=== PATIENT | male | born 1985 | race Caucasian/White ===

== ENCOUNTER 2019-08-29 12:04 | Outpatient (REF) | payer BC, SELFPAY ==
[2019-09-02 11:00] LABS: Calculated LDL 138 mg/dL; Cholesterol 232 mg/dL (<200); HDL Cholesterol 57 mg/dL (40-60); Triglyceride 189 mg/dL (<150)
[2019-09-04 10:51] LABS: BUN 12 mg/dL (10-26); CO2 Total 27 mEq/L (22-32); Chloride 101 mEq/dL (96-110); Glucose 100 mg/dL (70-100); Potassium 4.2 mEq/L (3.5-5.0); Sodium 137 mEq/L (136-145)
[2019-09-04 10:52] LABS: ALT 43 U/L (<50); AST 34 U/L (15-46); Albumin 4.7 g/dL (3.4-4.9); Alkaline Phosphatase 72 U/L (38-126); Calcium 10.1 mg/dL (8.5-10.5); Total Protein 7.8 g/dL (6.3-8.2); eGFR 116 (>60)
== END 2019-08-29 12:24 ==
LOC: NCHCN 12:04
PROVIDERS: PCP Nurse Practitioner Family; Visit Provider Nurse Practitioner Family
DX: Z13.220 Encounter for screening for lipoid disorders (principal); Z51.81 Encounter for therapeutic drug level monitoring
CPT/HCPCS: 80053; 80061

== ENCOUNTER 2022-01-24 02:44 | Outpatient (CLI) | payer BC, SELFPAY ==
[2022-01-24 13:05] LABS: Calculated LDL 194 mg/dL (<100); Cholesterol 277 mg/dL (<200); HDL Cholesterol 56 mg/dL (40-60); Triglyceride 139 mg/dL (<150)
== END 2022-01-24 02:45 | disposition home or self-care (01) ==
LOC: LOS 02:44
PROVIDERS: PCP Nurse Practitioner Family; Visit Provider Nurse Practitioner Family
DX: Z13.220 Encounter for screening for lipoid disorders (principal)
CPT/HCPCS: 36415; 80061

== ENCOUNTER 2022-02-21 18:14 | Outpatient (REF) | payer BC, SELFPAY ==
[2022-02-23 11:41] LABS: COVID-19 RT-PCR UVMMC Result Positive (Negative)
== END 2022-02-21 18:15 | disposition home or self-care (01) ==
LOC: LBN 18:14
PROVIDERS: PCP Nurse Practitioner Family; Visit Provider Nurse Practitioner Family
DX: Z20.822 Contact with and (suspected) exposure to COVID-19 (principal); J02.9 Acute pharyngitis, unspecified
CPT/HCPCS: U0003

== ENCOUNTER 2022-04-24 14:45 | Emergency (ER) | payer OTHER, SELFPAY ==
[2022-04-24 14:52] VITALS: BP 145/81; PULSE 84; RESP 16; TEMP 37.2; O2SAT 99
--- NOTE | 2022-04-24 15:15 | DI.CT_ITS ---
Exam(s) CT ABDOMEN PELVIS WO EXAM: CT ABDOMEN PELVIS WO CLINICAL HISTORY: left lower abdomen pain. TECHNIQUE: Imaging Protocol: Axial computed tomography images with coronal and sagittal reformatted images were created and reviewed. COMPARISON: No exams were available for comparison FINDINGS: ABDOMEN: Lung Bases: Normal where visualized. Liver: Normal density. No measurable mass. Gallbladder and biliary tract: No radiodense calculus or biliary ductal dilation. Pancreas: Normal density, no abnormal calcifications or inflammatory process. Spleen: Normal. Kidneys: Normal size, contour and axis.2 mm nonobstructing stone in the midpole of the right kidney. No masses seen. Adrenal glands: No mass is seen. Lymph nodes: Within normal limits. Abdominal Aorta: Abdominal portion non-dilated. Atherosclerosis. PELVIS: Bladder:Symmetric distention, no gross wall thickening. Bowel: There is bowel wall thickening seen in the proximal sigmoid colon with surrounding inflammatio n. There are few diverticula suggested in the region and this may represent acute diverticulitis. I nfectious or inflammatory colitis cannot be excluded. Appendix is unremarkable. There is no evidenc e of bowel obstruction. Peritoneal cavity: There is a trace amount of free fluid in the pelvis. No free air. Reproductive organs: Unremarkable as visualized. Bones: Within normal limits. Soft Tissues: Within normal limits. IMPRESSION: 1. There is bowel wall thickening seen in the proximal sigmoid colon with surrounding inflammation. There are few diverticula in the area suggesting acute diverticulitis. Infectious or inflammatory co litis should also be considered. There is no abscess or free air. 2. Results of this exam have been verbally communicated with provider. RADIATION DOSE DELIVERED: 648.2mGy.cm Total DLP DATA REPOSITORY: All CT scans at this facility are submitted to the National Radiology Data Registry (NRDR) Dose Index Registry (DIR) with the [employer] (A[employer]). RADIATION OPTIMIZATION: All CT scans at this facility use at least one of these dose optimization te chniques: automated exposure control; mA and/or kV adjustment per patient size (includes targeted exa ms where dose is matched to clinical indication); or iterative reconstruction.
--- NOTE | 2022-04-24 15:22 | W.ED.GENAD ---
Discharge Plan Disposition Patient Disposition: HOME Condition: Stable Discharge Details Clinical Impression: Diverticulitis Primary Care Provider: Jae Johnson ED Provider: Cortez Marcum Home Meds and New Rx's Prescriptions: New amoxicillin-pot clavulanate 875-125 mg tablet 1 tab PO BID Qty: 14 0RF Continued epinephrine [EpiPen 2-Patrick] 0.3 mg/0.3 mL auto-injector 0.3 mg IM ONCE Rx Instructions: as a single dose; may repeat once Discharge Instructions Instructions: Diverticulitis (ED) Additional Instructions: you can take ibuprofen and tylenol as needed for pain, follow dosing instructions on packaging if your symptoms don't improve in a week follow up with your primary care provider if you feel more ill, have severe worsening pain or fevers return to the emergency department Medical Decision Making 36 yo male with no chronic medical problems comes in with cc of abdomen pain since yesterday late morning. Denies pain like this in the past and has had diarrhea. No fevers, chills, urinary symptoms, bloody stools, n/v. HE has not had prior surgeries and denies smoking or drug use and drinks socially. He localizes the pain to the llq and is tender in this area, no other tenderness elsewhere, no guarding or rebound. Denies testicle pain or swelling. Suspect diverticulitis given location of pain, will obtain cbc, cmp, lipase and ct abdomen pelvis to further evaluate labs show wbc of 15 and does have diverticulitis without perforation and abscess. He only has mild tenderness on deep palpation to llq on repeat exam and feels significant improvement with toradol. He is stable for d/c and return precautions given Differential Diagnosis Differential Diagnosis: diverticulitis, colitis Imaging Data Radiologic Study: Attestation: I personally reviewed and interpreted this imaging study as follows: Imaging: CT Scan Radiologist's impression: IMPRESSION: 1. There is bowel wall thickening seen in the proximal sigmoid colon with surrounding inflammation.? There are few diverticula in the area suggesting acute diverticulitis.? Infectious or inflammatory colitis should also be considered.? There is no abscess or free air. 2. Results of this exam have been verbally communicated with provider.? HPI General Mode of arrival: ambulatory. Date/Time Provider Initiated Documentation: 04/24/22 15:14. Limitations to Documentation: no limitations. Information obtained by: patient. History of Present Illness 36 year old M presents to the emergency department with the chief complaint of abdomen pain, described as moderate, with intensity rated at 6. Quality is described as sharp, Patient reports no radiation. Patient started experiencing this day(s) (1) and it has been constant. No relieving factors improve symptom(s), No exacerbating factors reported . Patient notes no other symptoms.; denies fever/chills, nausea/vomiting and shortness of breath. Patient did receive the following treatments prior to arrival, none Related Data Home Medications Medication Instructions Recorded Confirmed epinephrine 0.3 mg/0.3 mL 0.3 mg IM ONCE 01/14/22 04/24/22 injection, auto-injector (EpiPen 2-Patrick) amoxicillin 875 mg-potassium 1 tab PO BID #14 tabs 04/24/22 clavulanate 125 mg tablet Previous Rx's Medication Instructions Recorded amoxicillin 875 mg-potassium 1 tab PO BID #14 tabs 04/24/22 clavulanate 125 mg tablet Allergies Allergy/AdvReac Type Severity Reaction Status Date / Time venom-honey bee Allergy Severe Anaphylaxsi Unverified 04/24/22 16:00 [bee venom (honey bee)] s venom-wasp [wasp venom] Allergy Severe Anaphylaxsi Unverified 04/24/22 16:00 s General Stated Complaint: Abd Prob RANDY: 3 Review of Systems All systems reviewed & are unremarkable except as noted in HPI and below Constitutional Constitutional: Denies chills, Denies fever(s) and Denies weakness Cardiovascular Cardiovascular: Denies chest pain and Denies dyspnea Respiratory Respiratory: Denies cough and Denies dyspnea Gastrointestinal Gastrointestinal: Denies nausea and Denies vomiting Genitourinary Genitourinary: Denies dysuria Neurologic Neurologic: Denies weakness [facility] All Active Problems (Updated 04/24/22 @ 16:51 by Cortez Marcum MD) Diverticulitis (Chronic) Anxiety (Chronic) Surgical History H/O vasectomy Family History Mother Alopecia Father Alcohol use disorder Brother Sleep apnea Son No problems noted. Son No problems noted. Maternal Grandmother , 77 No problems noted. Maternal Grandfather , 73 Alcohol use disorder Diabetes Hyperlipidemia Paternal Grandfather , 81 No problems noted. Paternal Grandmother , 84 No problems noted. Social History Smoking/Tobacco Use Status: Never Second Hand Exposure: Yes Smoking risk assessment performed?: Yes Alcohol Intake: current Alcohol Intake frequency: a few times a week Alcohol type: beer Drug use: Occasionally Substance use type: does not use Caregiver/Support person: No Household members: spouse and children Housing: house Communication Needs: None Do you need help understanding health information?: Rarely Pets and animals: Yes Pets and animals: dog(s) Sexually active: Yes Do you think of yourself as: straight/heterosexual Current gender identity: male What is your relationship status?: How often do you talk on the phone with friends or family?: three or more times per week How often do you get together with friends or relatives?: twice per week Do you belong to any clubs or organized social groups?: yes Panel score (0-1 are the most socially isolated patients): 3 What type of physical activity do you participate in: other Details: Golf Duration: > 90 minutes/day Frequency: 1-2 times per week Rowena/Adventist: No preference Special rowena needs: No Seatbelt use: always Helmet use: Yes Helmet use: sometimes Drive intox or ride w/intox vibratory pile driver: No Exam Const General: no acute distress Orientation: alert HENMT Head: normal to inspection Ears: external ears normal General nose exam: external nose normal Mouth: moist mucous membranes Eyes General: appearance normal, both eyes and all related structures Neck Neck: normal visual inspection Resp Effort & Inspection: normal respiratory effort and able to speak in complete sentences Cardio Rate: regular rate GI Palpation: soft and tender Skin General skin exam: no rashes or lesions noted Neuro General: patient alert and patient oriented x3 Extrem General: normal to inspection Psych Mental Status: mental status grossly normal Course Vital Signs Vital signs: Vital Signs Temperature 37.2 C 04/24/22 14:52 Pulse 84 04/24/22 14:52 Respiratory Rate 16 04/24/22 14:52 Blood Pressure 145/81 H 04/24/22 14:52 Pulse Oximetry 99 04/24/22 14:52 Temperature 37.2 C 04/24/22 14:52 Temperature Source Skin 04/24/22 14:52 Pulse 84 04/24/22 14:52 Respiratory Rate 16 04/24/22 14:52 Respiratory Effort 04/24/22 14:55 Blood Pressure 145/81 H 04/24/22 14:52 Blood Pressure Position Sitting 04/24/22 14:52 Pulse Oximetry 99 04/24/22 14:52 Oxygen Delivery Method Room Air 04/24/22 14:52 Oxygen Flow Rate 0 04/24/22 14:52 Pain Level 7 04/24/22 14:52 PAWSS Have you Been Recently Intoxicated or Drunk Within the Last 30 days?: No Have you Ever Experienced Previous Episodes of Alcohol Withdrawal?: No Have you ever Experienced Withdrawal Seizures?: No Have you ever Experienced Delirium Tremens(DT)s?: No Have you ever undergone Alcohol Rehabilitation Treatment (i.e, inpt ot outpatient treatment programs)?: No Have you ever Experienced Blackouts?: No Have you ever Combined Alcohol with other Downers within the last 90 days?: No Have you ever Combined Alcohol with any other Substance of Abuse during the last 90 days?: No Positive Blood Alcohol level on Presentation? [PCS.BAL]: No Evidence of Increased Autonomic Activity (i.e. HR>120, tremor, sweating, agitation, nausea)?: No Result: 0
[2022-04-24] MEDS: Normal Saline 1,000 ML 1000 ML IV (16:03)
[2022-04-24] MEDS: Ketorolac 15 MG/ML VIAL IVP (16:03)
[2022-04-24 16:06] VITALS: BP 113/66; PULSE 78; RESP 16; TEMP 36.8; O2SAT 98
[2022-04-24 16:36] LABS: Abs Immature Grans 0.06 10^3/uL (0.0-0.06); Absolute Eosinophil Count 0.05 10^3/uL (0.0-0.7); Absolute Lymphocyte Count 1.49 10^3/uL (1.2-3.4); Basophils % 0.3; Eosinophils % 0.3; HCT 44.8 % (40.0-50.0); HGB 15.2 g/dL (13.5-17.5); Immature Grans % 0.4; Lymphocytes % 9.4; MCH 30.4 pg (27.0-33.0); MCHC 33.9 % (32.0-36.0); MCV 90 fL (80-95); MPV 11.3 fL (8.0-11.0); Monocytes % 10.9; Neutrophils % 78.7; Platelet Count 243 10^3/uL (130-400); RDW 11.6 % (11.8-14.1); RDW-SD 37.5 fL; WBC 15.83 10^3/uL (4.4-10.8)
[2022-04-24 16:40] LABS: Absolute Basophil Count 0.05 10^3/uL (0.0-0.2); Absolute Monocyte Count 1.73 10^3/uL (0.1-0.8); Absolute Neutrophil Count 12.46 10^3/uL (1.2-6.7)
[2022-04-24 16:44] LABS: ALT 29 U/L (16-63); AST 21 U/L (15-37); Alkaline Phosphatase 89 U/L (46-116); Anion Gap 6.9 mmol/L (3-11); BUN 7 mg/dL (7-18); Bilirubin, Total 1.8 mg/dL (0.2-1.0); CO2 31.1 mmol/L (21.0-32.0); Calcium 8.9 mg/dL (8.5-10.1); Chloride 98 mmol/L (98-107); Glucose 95 mg/dL (74-106); Lipase 76 U/L (73-393); Potassium 3.4 mmol/L (3.5-5.1); Sodium 136 mmol/L (136-145); Total Protein 8.5 g/dL (6.4-8.2)
[2022-04-24 17:03] VITALS: BP 129/73; PULSE 86; RESP 18; TEMP 36.7; O2SAT 98
[2022-04-24] MEDS: Amoxicillin 875/Clav. 125 TAB PO (17:09)
== END 2022-04-24 17:03 | disposition home or self-care (01) ==
PROVIDERS: Emergency Provider Emergency Medicine; PCP Nurse Practitioner Family
DX: K57.32 Diverticulitis of large intestine without perforation or abscess without bleeding (principal); Z77.22 Contact with and (suspected) exposure to environmental tobacco smoke (acute) (chronic)
CPT/HCPCS: 80053; 83690; 96361; 96374; 99284; 74176; 85025; J1885

== ENCOUNTER 2023-02-12 04:50 | Outpatient (CLI) | payer OTHER, SELFPAY ==
[2023-02-12 17:32] LABS: Cholesterol 280 mg/dL (<200); HDL Cholesterol 45 mg/dL (40-60); Triglyceride 436 mg/dL (<150)
[2023-02-12 17:45] LABS: LDL CHOLESTEROL 154 mg/dL (<100)
== END 2023-02-12 04:51 | disposition home or self-care (01) ==
PROVIDERS: PCP Nurse Practitioner Family; Visit Provider Nurse Practitioner Family
DX: E78.5 Hyperlipidemia, unspecified (principal)
CPT/HCPCS: 36415; 80061; 83721

== ENCOUNTER 2024-02-18 05:51 | Outpatient (CLI) | payer OTHER, SELFPAY ==
[2024-02-18 17:19] LABS: Hemoglobin A1C 5.1 % (<5.7)
[2024-02-18 18:54] LABS: Calculated LDL 157 mg/dL (<100); Cholesterol 242 mg/dL (<200); HDL Cholesterol 48 mg/dL (40-60); Triglyceride 189 mg/dL (<150)
== END 2024-02-18 05:52 | disposition home or self-care (01) ==
LOC: LBO 05:51
PROVIDERS: PCP Nurse Practitioner Family; Visit Provider Nurse Practitioner Family
DX: E78.5 Hyperlipidemia, unspecified (principal); Z13.1 Encounter for screening for diabetes mellitus
CPT/HCPCS: 36415; 80061; 83036